=== PATIENT | male | born 1995 | race Caucasian/White ===

== ENCOUNTER 2024-12-11 15:47 | Emergency (ER) | payer OTHER, SELFPAY ==
[2024-12-11] VITALS (19 sets, daily range): BP systolic 120–143; BP diastolic 83–108; PULSE 57–102; RESP 14–25; TEMP 36.4; O2SAT 94–99
--- NOTE | ~2024-12-11 | CT_ITS ---
EXAMINATION: CT brain wo con DATE: 12/11/2024 17:32 INDICATION: headache . TECHNIQUE: Computed tomography (CT) of the head was performed without intravenous contrast. The mA wa s adjusted according to patient size. Iterative reconstruction technique was employed. The dose-lengt h product was 605.33 mGy-cm. COMPARISON: None. FINDINGS: No acute intracranial hemorrhage or extra-axial fluid collection. No hydrocephalus, mass, or herniation. No acute ischemic infarct. Unremarkable dural venous sinus attenuation. No acute osseous abnormality. The aerated spaces are clear. IMPRESSION: No acute intracranial process. Reviewed, dictated and finalized at location K.
--- NOTE | ~2024-12-11 | XR_ITS ---
EXAMINATION: XR chest 2V Exam Date/Time: 12/11/2024 16:20 CDT HISTORY: chest pain Comparison: None. RESULT: Lines, tubes, and devices: None. Lungs and pleura: Clear. Cardiomediastinal silhouette: Normal. Other: No acute osseous or upper abdominal finding. IMPRESSION: No acute cardiopulmonary process. Reviewed, dictated and finalized at location K.
--- NOTE | 2024-12-11 15:56 | ECG_ITS ---
Test Date: 2024-12-11 19:06:02 Measurements Intervals [place] Rate: 57 P: 13 ND: 158 QRS: 3 QRSD: 95 T: -1 QT: 388 QTc: 379 Interpretive Statements SINUS BRADYCARDIA VOLTAGE CRITERIA FOR LVH MINIMAL Q WAVES- HIGH LATERAL LEADS BORDERLINE T WAVE ABNORMALITY- INFERIOR LEADS BASELINE ARTIFACT- I, III, AVR, AVL, AVF, V2 BORDERLINE ECG Compared to ECG 12/11/2024 15:58:58 No significant changes Electronically Signed On 12-11-2024 19:38:27 CDT by Pito Javier D.O.
--- NOTE | 2024-12-11 15:56 | ECG_ITS ---
Test Date: 2024-12-11 15:58:58 Measurements Intervals [place] Rate: 58 P: 18 MS: 149 QRS: 6 QRSD: 99 T: 2 QT: 404 QTc: 397 Interpretive Statements SINUS BRADYCARDIA VOLTAGE CRITERIA FOR LVH MINIMAL Q WAVES- HIGH LATERAL LEADS BORDERLINE T WAVE ABNORMALITY- INFERIOR LEADS BORDERLINE ECG No previous ECG available for comparison Electronically Signed On 12-11-2024 19:38:52 CDT by Pito Javier D.O.
--- NOTE | 2024-12-11 16:00 | ED_ITS ---
HPI - General Adult General Chief complaint: Unspecified Stated complaint: multiple complaints Time Seen by Provider: 12/11/24 15:56 Source: patient Mode of arrival: ambulatory Limitations: no limitations History of Present Illness HPI narrative: This is a 29 year old male that presents to the ER with multiple complaints. Reports on Thursday he sneezed. He had a headache and chest pain after. He has been having headaches since. Reports he doesn't feel right . Reports an achy left sided chest pain that has been intermittent as well. Reports he has not been able to sleep well, increasing anxiety. Related Data Allergies Allergy/AdvReac Type Severity Reaction Status Date / Time ciprofloxacin (From Cipro) Allergy Dizziness Verified 12/11/24 15:50 Review of Systems 2 Review of Systems: CONSTITUTIONAL: Denies fever CARDIOVASCULAR: Reports chest pain RESPIRATORY: Denies dyspnea. GASTROINTESTINAL: Denies vomiting NEUROLOGIC: Reports headache. Denies numbness, or weakness. All systems reviewed & are unremarkable except as noted in HPI and below PMFSH Past Medical History Medical History (Updated 12/11/24 @ 20:24 by Dulce Louis PA-C) History of anxiety Social History Social History (Updated 12/11/24 @ 17:04 by Dulce Louis PA-C) Smoking status: Never smoker Exam 2 Narrative: GENERAL: Well-appearing, well-nourished, and in no acute distress. HEAD: Normocephalic, atraumatic. EYES: PERRLA and EOMI. ENT: Nares clear, no rhinorrhea or epistaxis. Mucous membranes moist. Oropharynx without tonsillar hypertrophy exudate or other lesions. Bilateral TMs pearly granado non-bulging NECK: Supple. No adenopathy or masses. CHEST: Clear to auscultation. No respiratory distress. No wheezes rales or rhonchi HEART: Regular rate and rhythm. No murmur heard. Normal peripheral pulses. EXTREMITIES: Normal range of motion. No edema. Strength equal in bilateral upper and lower extremities SKIN: Warm, dry, no rash. NEURO: No focal deficits. Alert and oriented x3. CN II-XII grossly intact. Normal gait PSYCH: Normal mood and affect Course Course Emergency Course: Patient updated on his workup and agrees with plan of care Vital Signs Vital signs: Vital Signs Pulse Rate 60 12/11/24 15:57 Respiratory Rate 18 12/11/24 15:57 Blood Pressure 138/83 12/11/24 15:57 Pulse Oximetry 99 12/11/24 15:57 Temperature 97.6 F 12/11/24 15:58 Pulse Rate 102 H 12/11/24 20:16 Respiratory Rate 19 12/11/24 20:16 Blood Pressure 141/108 H 12/11/24 20:16 Pulse Oximetry 96 12/11/24 20:16 Medical Decision Making MDM Narrative Medical decision making narrative: Patient presents to the emergency department with multiple complaints. Reporting headaches, chest pains. Patient's vitals are stable. He is neurologically intact. CBC and metabolic panel without concerning findings. D- dimer is not elevated. EKG without acute ST changes in his baseline and 3 hour troponin are negative. Chest x-ray without acute cardiopulmonary abnormality. CT brain without acute findings. Patient updated on his workup and agrees with plan of care. Instructed to follow up with his primary provider for further evaluation. He was given warnings to return to the ER Vital Signs Vital Signs: Vital Signs Pulse Rate 60 12/11/24 15:57 Respiratory Rate 18 12/11/24 15:57 Blood Pressure 138/83 12/11/24 15:57 Pulse Oximetry 99 12/11/24 15:57 Temperature 97.6 F 12/11/24 15:58 Pulse Rate 102 H 12/11/24 20:16 Respiratory Rate 19 12/11/24 20:16 Blood Pressure 141/108 H 12/11/24 20:16 Pulse Oximetry 96 12/11/24 20:16 Lab Data Lab results reviewed: Yes I reviewed the patient's lab results. 12/11/24 16:01 12/11/24 16:01 Labs: Lab Results 12/11/24 12/11/24 Range/Units 16:01 19:04 WBC 7.3 (4.5-10.0) K/mm3 RBC 5.25 (4.6-6.20) M/mm3 Hgb 16.7 (14.0-18.0) g/dL Hct 48.3 (42.0-52.0) % MCV 92.0 (80-100) fl MCH 31.8 (26-34) pg MCHC 34.6 (32-36) g/dl RDW 12.7 (11.5-14.5) % Plt Count 267 (150-375) k/mm3 MPV 10.2 (7.4-10.4) fl Immature Gran % (Auto) 0.1 (0-0.5) % Neut % (Auto) 64.4 (45.5-73.1) % Lymph % (Auto) 23.4 (18.3-44.2) % Cedar % (Auto) 7.8 (2.6-8.5) % Eos % (Auto) 3.7 (0-4.4) % Baso % (Auto) 0.6 (0.2-1.2) % Lymph # (Auto) 1.70 (0.9-3.2) K/mm3 Cedar # (Auto) 0.6 (0.1-0.6) K/mm3 Eos # (Auto) 0.3 (0-0.3) K/mm3 Baso # (Auto) 0.0 (0.0-0.1) K/mm3 Abs Immat Gran (auto) 0.01 (0.00-0.031) K/mm3 Absolute Neuts (auto) 4.7 (1.3-6.7) K/mm3 Absolute Nucleated RBC 0.000 (0.0-0.012) K/mm3 Nucleated RBC % 0.0 (0.0-0.2) % PT 13.2 (11.1-14.7) Seconds INR 1.0 APTT 27.7 (22.3-36.8) Seconds D-Dimer 0.30 (<0.48) ug/mL Sodium 139 (137-145) mmol/L Potassium 4.2 (3.4-5.0) mmol/L Chloride 104 (98-107) mmol/L Carbon Dioxide 23 (22-30) mmol/L Anion Gap 12 (4-12) mmol/L BUN 13 (9-20) mg/dL Creatinine 0.76 (0.7-1.3) mg/dL Estim Creat Clear Calc 168 ml/min Estimated GFR > 60 (59 - ) Glucose 90 (65-110) mg/dL Calcium 9.4 (8.4-10.2) mg/dL Total Bilirubin 0.8 (0.2-1.3) mg/dL AST 34 (17-59) U/L ALT 49 (6-50) U/L Alkaline Phosphatase 89 (38-126) U/L Troponin I < 0.012 < 0.012 (0.000-0.034) ng/mL Total Protein 8.0 (6.3-8.2) g/dL Albumin 4.4 (3.5-5.1) g/dL Lipase 65 (23-300) U/L TSH (Reflex) 1.870 (0.465-4.68) uIU/mL Imaging Data Radiologist's impression: ITS Impressions Chest X-Ray 12/11/24 16:38 IMPRESSION: No acute cardiopulmonary process. Head CT 12/11/24 17:33 IMPRESSION: No acute intracranial process. ECG Data EKG #1: ECG completion date: 12/11/24 EKG Interpretation: normal rate, sinus rhythm, no ST changes and normal QT Critical Care Time Critical Care Time Critical Care Time: No Discharge Plan Discharge Clinical Impression: Chest pain Qualifiers: Chest pain type: unspecified Qualified Code(s): R07.9 - Chest pain, unspecified Headache Qualifiers: Headache type: unspecified Headache chronicity pattern: acute headache I ntractability: not intractable Qualified Code(s): R51.9 - Headache, unspecified Patient Disposition: Home Condition: Stable Instructions: Acute Headache (ED), Chest Wall Pain (ED) Additional Instructions: Return to the emergency department if you experience fever, vision changes, worsening chest pain, shortness of breath, abdominal pain with nausea and vomiting, weakness, numbness, or any other symptoms that are concerning to you. Follow up with your primary care doctor Patient Language: Malawian Follow-up/Referrals: UNKNOWN,DOCTOR [Primary Care Provider] - Quality HEART score for chest pain patients History: slightly suspicious ECG: normal Age: < or = to 45 years Risk factors: 1 or 2 risk factors Troponin: < or = to 1x normal limit Heart score: 1
[2024-12-11 16:06] LABS: Basophils Percent Auto 0.6 % (0.2-1.2); Eosinophils Absolute Auto 0.3 K/mm3 (0-0.3); Eosinophils Percent Auto 3.7 % (0-4.4); Hematocrit 48.3 % (42.0-52.0); Hemoglobin 16.7 g/dL (14.0-18.0); Immature Granulocyte Absolute 0.01 K/mm3 (0.00-0.031); Immature Granulocyte Percent A 0.1 % (0-0.5); Lymphocytes Percent Auto 23.4 % (18.3-44.2); Mean Corpuscular HGB Conc 34.6 g/dl (32-36); Mean Corpuscular Hemoglobin 31.8 pg (26-34); Mean Platelet Volume 10.2 fl (7.4-10.4); Monocytes Absolute Auto 0.6 K/mm3 (0.1-0.6); Monocytes Percent Auto 7.8 % (2.6-8.5); Neutrophils Absolute Auto 4.7 K/mm3 (1.3-6.7); Neutrophils Percent Auto 64.4 % (45.5-73.1); Platelet Count Result 267 k/mm3 (150-375); Red Blood Count 5.25 M/mm3 (4.6-6.20); Red Cell Distribution Width 12.7 % (11.5-14.5); White Blood Count 7.3 K/mm3 (4.5-10.0)
[2024-12-11] MEDS: ASPIRIN 81 MG CHEWABLE TABLET 324 MG PO (16:07)
--- OUTSIDE RECORDS SUMMARY | 2024-12-11 16:15 | XMS_ITS | Clinical Summary ---
Author Organization [facility] Address [address] [place] [address] Care Team Providers Care Controller [place] Name Role Phone Pascale Cote MD Primary Care P rovider Allergies Active Allergy Reactions Criticality Noted Date Comments Ciprofloxacin High Other reaction(s): Dizziness - Medications pseudoephedrine HCl (SUDAFED ORAL) Take 1 tablet by mouth daily Active acetaminophen (Tylenol Extra Strength) 500 mg tabletIndication s:Viral meningitis Take 1 tablet (500 mg total) by mouth every 6 (six) hours 30 tablet 2 Active escitalopram (LEXAPRO) 20 mg tablet Take 1 tablet (20 mg total) by mouth daily 3 Active ibuprofen (MOTRIN) 400 mg tablet Take 1 tablet (400 mg total) by mouth every 6 (six) hours as needed for mild pain or moderate pain Active meloxicam (MOBIC) 15 mg tablet Take 1 tablet (15 mg total) by mouth daily as needed for moderate pain Holding 1 week Active HYDROcodone-acet aminophen (NORCO) 5-325 mg per tabletIndication s:Deviated septum,Hypertrop hy of nasal turbinates,Hyper trophy of inferior nasal turbinate,Chroni c maxillary sinusitis Take 1 tablet by mouth every 6 (six) hours as needed for moderate pain 30 tablet 4 Active Additional Information Patient not taking.Reported on 04/14/2024 naloxone (NARCAN) 4 mg/actuation spray,non-aeroso l nasal sprayIndications :Deviated septum,Hypertrop hy of nasal turbinates,Hyper trophy of inferior nasal turbinate,Chroni c maxillary sinusitis Administer 1 spray into one nostril as needed (for overdose) May repeat every 2 to 3 minutes in alternating nostrils until medical assistance becomes available. 2 each 4 Active clotrimazole (LOTRIMIN) 1 % external solutionIndicati ons:Oral thrush Apply topically 2 (two) times a day 30 mL 4 Active Additional Information Patient not taking.Reported on 07/29/2024 oxyCODONE-acetam inophen (PERCOCET) 5-325 mg per tabletIndication s:Post-operative pain Take 1 tablet by mouth every 4 (four) hours as needed for moderate pain 7 tablet 4 Active Additional Information Patient not taking.Reported on 07/29/2024 codeine-guaiFENe sin (ROBITUSSIN-AC) 10-100 mg/5 mL liquidIndication s:Cough, unspecified type Take 10 mL by mouth every 4 (four) hours as needed for cough 1st line 120 mL 4 Active Additional Information Patient not taking.Reported on 07/29/2024 hydrOXYzine (ATARAX) 25 mg tabletIndication s:Rash Take 1 tablet (25 mg total) by mouth 3 (three) times a day as needed for itching 30 tablet 4 Active clotrimazole-bet amethasone (LOTRISONE) creamIndications :Rash Apply topically 2 (two) times a day 30 g 4 Active Active Problems Problem Noted Date Diagnosed Date Acute intractable headache, unspecified headache type 04/26/2022 Chronic maxillary sinusitis 02/23/2019 Deviated septum 02/23/2019 Hypertrophy of inferior nasal turbinate 02/24/20 19 Assessment & Plan (06/10/2023 4:05 PM CDT): Try halina Will check RAST Follow up surgeon for ITR possible septo Discussed surgery, cannot guarantee cure of headaches, may have chronic migraine vs medication overuse headache, may need to see neurologist. Assessment & Plan (02/23/2019 2:57 PM CDT): rec nasal saline irrigation with NeilMed rinse kit followed by nasal steroid daily Try nasacort, aim out Add singulair F/u in [address] sinuses to r/o chronic sinusitis due to chronic headaches, deviated septum, turbinate hypertrophy If sinuses clear, will ref to allergy Immunizations Name Administration Dates Next Due Influenza (IM) Quad PF 04/10/2018 Social History Tobacco Use Types Packs/Day Years Used Date Smoking Tobacco: Never Smokeless Tobacco: Never Tobacco Cessation:Counseling Given: Not Answered Alcohol Use Standard Drinks/Week Comments No 0 (1 standard drink = 0.6 oz pur e alcohol) AUDIT-C Answer Date Recorded Q1: How often do you have a drink containing alcohol? Never 09/30/2023 Q2: How many drinks containi ng alcohol do you have on a typical day when you are drinking? Patient does not drink Q3: How often do you have si x or more drinks on one occasion? Never 09/30/2023 Hunger Vital Sign Answer Date Recorded Within the past 12 months, y ou worried that your food would run out before you got the money to buy more. Never true 09/30/19 24 Within the past 12 months, t he food you bought just didn't last and you didn't have money to get more. Never true 09/30/2023 PRAPARE - Transportation Answer Date Re corded In the past 12 months, has l ack of transportation kept you from medical appointments or from getting medications? 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 Pulse 92 07/29/2024 5:42 PM SHELLFISH CHECKER Temperature 35.9 C (96.6 F) 07/29/2024 5:42 PM SHELLFISH CHECKER Respiratory Rate 17 06/16/2024 4:45 PM CDT Oxygen Saturation 99% 07/29/2024 5:42 PM SHELLFISH CHECKER Inhaled Oxygen Concentration - - Weight 130 kg (286 lb 1.6 oz) 07/29/2024 5:42 PM SHELLFISH CHECKER Height 180.3 cm (5' 11 ) 11/04/2023 8:43 AM CDT Body Mass Index 39.9 11/04/2023 8:43 AM CDT Plan of Treatment Health Maintenance Due Date Last Done Comments MMR Vaccines (1 of 1 - Stand ran series) 1994 DTaP,Tdap,and Td Vaccines (1 - Tdap) 2000 Varicella Vaccines (1 of 2 - 13+ 2-dose series) 2006 Hepatitis B Vaccines (1 of 3 - 19+ 3-dose series) 2012 COVID-19 Vaccine (1 - 2023-2 5 season) 2024 Influenza Vaccine (Season Ended) 2025 04/10/20 18 RSV Vaccines and 60 Years or Older (1 - 1-dose 75+ series) 2068 AMB Pneumococcal 0-64 yrs Aged Out No longer eligible based on patient's age to complete this topic HIB Vaccines Aged Out No longer eligi ble based on patient's age to complete this topic HPV Vaccines Aged Out No longer eligi ble based on patient's age to complete this topic Hepatitis A Vaccines Aged Out No long er eligible based on patient's age to complete this topic IPV Vaccines Aged Out No longer eligi ble based on patient's age to complete this topic Meningococcal ACWY Vaccine Aged Out N o longer eligible based on patient's age to complete this topic Meningococcal B Vaccine Aged Out No l onger eligible based on patient's age to complete this topic RSV Vaccines <20 Months Aged Out No l onger eligible based on patient's age to complete this topic Insurance [facility] [employer] Member Subscriber Plan / Payer (Ef fective 2021-Present) Name:Matt Lubin Member ID:[id number] Relation to Subscriber:Self Name:Matt Lubin Subscriber ID:[id number] Payer ID:Not on file Type:Claim Assist Address: [address] [facility] Advance Directives For more information, please contact: [phone] * Full Code (Latest Code Status on File) Date Activated Date Inactivated Comments 10/15/2023 7:56 AM 10/15/2023 3:25 PM * Full Code Date Activated Date Inactivated Comments 04/26/2022 9:17 AM 04/27/2022 4:06 PM Care Teams Controller [place] Relationship Specialty Start Date End Date Pascale Cote MD [address] [place] [address] PCP - General Family Medicine 01/13/24
--- OUTSIDE RECORDS SUMMARY | 2024-12-11 16:15 | XMS_ITS | Clinical Summary ---
Author Organization [facility] Address [address] [place] [id number] Care Team Providers Care Executive Wellness Programs Director Name Role Phone JasonJerald Nadya KLEIN Primary Care Provider [phone] Allergies Active Allergy Reactions Criticality Noted Date Comments Ciprofloxacin Unknown 07/15/2023 Medications escitalopram (LEXAPRO) 20 MG tablet Take 20 mg by mouth daily. Active meloxicam (MOBIC) 15 MG tablet 06/24/2023 Active Multiple Vitamins-Mineral s (DAILY VITAMIN FORMULA+MINERALS ) Tab 12/13/2019 Active pseudoephedrine ER (SUDAFED) 120 MG 12 hr tablet Take 120 mg by mouth every 12 (twelve) hours. Active Active Problems Problem Noted Date Diagnosed Date Other chest pain 07/15/2023 Chronic maxillary sinusitis 02/23/2019 Hypertrophy of inferior nasal turbinate 02/24/20 19 Overview (07/15/2023): Last Assessment & Plan: Maria A meade Will check RAST Follow up surgeon for ITR possible septo Discussed surgery, cannot guarantee cure of headaches, may have chronic migraine vs medication overuse headache, may need to see neurologist. Acute intractable headache, unspecified headache type 1993 Social History Tobacco Use Types Packs/Day Years Used Date Smoking Tobacco: Never Smokeless Tobacco: Never Tobacco Cessation:Counseling Given: Not Answered Alcohol Use Standard Drinks/Week Comments Never 0 (1 standard drink = 0.6 oz pur e alcohol) Sex and Gender Information Value Date Recorded Sex Assigned at Not on file Legal Sex Male 7:58 PM CDT Gender Identity Not on file Sexual Orientation Not on file Last Filed Vital Signs Vital Sign Reading Time Taken Comments Blood Pressure 126/84 07/15/2023 9:52 AM CARE TRAINER Pulse 75 07/15/2023 9:52 AM CARE TRAINER Temperature - - Respiratory Rate 16 07/15/2023 9:52 AM CARE TRAINER Oxygen Saturation 98% 07/15/2023 9:52 AM CARE TRAINER Inhaled Oxygen Concentration - - Weight 121.7 kg (268 lb 6.4 oz) 07/15/2023 9:52 AM CARE TRAINER Height 180.3 cm (5' 11 ) 07/15/2023 9:52 AM CARE TRAINER Body Mass Index 37.43 07/15/2023 9:52 AM CARE TRAINER Plan of Treatment Health Maintenance Due Date Last Done Comments Annual Physical 1996 Hepatitis C 2011 DTaP, Tdap and Td Vaccines ( 1 - Tdap) 2012 Hepatitis B Vaccines (1 of 3 - 19+ 3-dose series) 2012 COVID-19 Vaccine (2023-2 5 season) 2024 HPV Vaccines Aged Out No longer eligi ble based on patient's age to complete this topic Meningococcal B Vaccine Aged Out No l onger eligible based on patient's age to complete this topic Meningococcal Vaccine Aged Out No dawn ronnie eligible based on patient's age to complete this topic Pneumococcal Vaccine: Pediat rics (0 to 5 Years) and At-Risk Patients (6 to 49 Years) Aged Out No longer eligible b ased on patient's age to complete this topic RSV Immunizations Under 20 Months Aged Out No longer eligible based on patient's age to complete this topic Insurance [facility] Care Teams Executive Wellness Programs Director Relationship Specialty Start Date End Date Jerald Gomez DO [address] [facility] [address] [place] [address] PCP - General FAMILY PRACTICE 07/15/23
--- OUTSIDE RECORDS SUMMARY | 2024-12-11 16:15 | XMS_ITS | Encounter Summary ---
Author Organization [facility] Address [address] [place] [address] Care Team Providers Care Access Rep Name Role Phone Pascale Cote MD Primary Care P [place] Reason for Visit * Reason Comments Med Refill Encounter Details Date Type Department Care Team (Late st Contact Info) Description 02/24/2020 Refill [facility] Otolaryngology [address] [place] [address] Tali Ken PA [address] [place] [address] Social History Tobacco Use Types Packs/Day Years Used Date Smoking Tobacco: Never Smokeless Tobacco: Never Alcohol Use Standard Drinks/Week Comments No 0 (1 standard drink = 0.6 oz pur e alcohol) Sex and Gender Information Value Date Recorded Sex Assigned at Not on file Legal Sex Male 11:13 PM CDT Gender Identity Male 02/15/2023 6:38 PM CDT Sexual Orientation Not on file documented as of this encounter Miscellaneous Notes * Telephone Encounter - Edilia Escalera LPN - 02/27/2020 7:56 AM CDT Please review documented in this encounter Plan of Treatment Not on file documented as of this encounter Visit Diagnoses Not on filedocumented in this encounter Additional Health Concerns Infection Onset Date Last Indicated Resolved Time R/O COVID-19 03/05/2020 03/05/2020 03/07/2020 7:09 PM CDT R/O COVID-19 05/09/2020 05/09/2020 05/09/2020 11:0 2 PM CDT R/O COVID-19 11/22/2020 11/22/2020 11/22/2020 4:18 PM CDT R/O COVID-19 07/30/2021 07/30/2021 07/30/2021 8:35 PM 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-19 07/30/2021 07/30/2021 10/28/2021 12:2 1 AM DRAWING IN MACHINE TENDER HELPER R/O COVID-19 04/25/2022 04/25/2022 04/25/2022 5:23 PM CDT R/O COVID-19 04/26/2022 04/26/2022 04/26/2022 4:33 AM CDT R/O TB: EP (draining) 04/26/2022 04/26/20222021 11:33 AM CDT R/O Meningitis 04/26/2022 04/26/2022 04/26/2022 10 :42 AM CDT R/O COVID-19 02/10/2023 02/10/2023 02/10/2023 10:2 4 PM CDT R/O COVID-19 01/13/2024 01/13/2024 01/13/2024 4:39 PM CDT Rhinovirus infection 01/13/2024 01/13/2024 024 12:21 AM CDT R/O Meningitis >=9yo 01/13/2024 01/13/2024 024 6:55 PM CDT R/O COVID-19 04/14/2024 04/14/2024 04/14/2024 3:25 PM CDT documented as of this encounter Care Teams Access Rep Relationship Specialty Start Date End Date Pascale Cote MD [address] [place] [address] PCP - General Family Medicine 01/13/24 documented as of this encounter
--- OUTSIDE RECORDS SUMMARY | 2024-12-11 16:15 | XMS_ITS | Encounter Summary ---
Author Organization [facility] Address [address] [place] [address] Care Team Providers Care Food Supervisor Name Role Phone Pascale Cote MD Primary Care P [place] Reason for Visit * Reason Comments Med Refill Encounter Details Date Type Department Care Team (Late st Contact Info) Description 04/29/2020 Refill [facility] Otolaryngology [address] [place] [id number] Tali Ken PA [address] [place], [place] [id number] Social History Tobacco Use Types Packs/Day Years [...] encounter Miscellaneous Notes * Telephone Encounter - DARON Amor - 05/01/2020 8:44 AM CDT Needs appointment for refills of singulair * Telephone Encounter - Edilia Escalera LPN - 05/01/2020 7:59 AM CDT Please review documented in this encounter Plan of Treatment Not on file documented as of this encounter Visit Diagnoses Not on filedocumented in this encounter Additional Health Concerns Infection Onset Date Last Indicated Resolved Time R/O COVID-19 05/09/2020 05/09/2020 05/09/2020 11:0 2 PM CDT R/O COVID-19 11/22/2020 11/22/2020 11/22/2020 4:18 PM CDT R/O COVID-19 07/30/2021 07/30/2021 07/30/2021 8:35 PM RESEARCH CLERK COVID-19 07/30/2021 07/30/2021 10/28/2021 12:2 1 AM RESEARCH CLERK R/O COVID-19 04/25/2022 04/25/2022 04/25/2022 5:23 PM [...] documented as of this encounter Care Teams Food Supervisor Relationship Specialty Start Date End Date Pascale Cote MD [address] [place] [id number] PCP - General Family Medicine 01/13/24 documented as of this encounter
--- OUTSIDE RECORDS SUMMARY | 2024-12-11 16:15 | XMS_ITS | Encounter Summary ---
Author Organization [facility] Address [address] [place] [address] Care Team Providers Care Cartographic Aide Name Role Phone Pascale Cote MD Primary Care P beverly[place] Encounter Details Date Type Department Care Team (Late st Contact Info) Description 10/21/2023 Orders Only [facility] Medical Group Otolaryngology [address] [place] [address] Taj Jaramillo MD [address] [place] [address] Oral thrush (Primary Dx) Social History Tobacco Use Types Packs/Day Years [...] on file documented as of this encounter Plan of Treatment Not on file documented as of this encounter Visit Diagnoses Diagnosis Oral thrush- Primary Candidiasis of mouth documented in this encounter Additional Health Concerns Infection Onset Date Last Indicated Resolved Time R/O COVID-19 01/13/2024 01/13/2024 01/13/2024 4:39 PM CDT Rhinovirus infection 01/13/2024 01/13/2024 12:21 AM CDT R/O Meningitis >=9yo 01/13/2024 01/13/2024 024 6:55 PM CDT R/O COVID-19 04/14/2024 04/14/2024 04/14/2024 3:25 PM CDT documented as of this encounter Care Teams Cartographic Aide Relationship Specialty Start Date End Date Pascale Cote MD [address] [place] [id number] PCP - General Family Medicine 01/13/24 documented as of this encounter
--- OUTSIDE RECORDS SUMMARY | 2024-12-11 16:15 | XMS_ITS | Data Portability ---
Author Organization [facility], [facility] Address [address] [place] [address] Assessment No assessment recorded. Plan of Treatment Reminders Order Date Submit Date Provider Last Modified By Organization Details Last Modified Time Details Appointments None recorded. Lab rapid strep group A, throat 2019 020 NATALIE In-House Results, For Internal Use Only, Do Not Delete/merge, [id number] 0 15:56:55 Referral None recorded. Procedures None recorded. Surgeries None recorded. Imaging None recorded. Medication Orders amoxicilli n 500 mg capsule 2019 020 INTERFACE [facility] [id number], [address] [place], [address], 0 15:56:07 Patient TargetsNo targets recorded. Patient Instructions Encounter Date Encounter Id Patient Instructions Last Modified By Organization Details Last Modified Time 11/29/2019 [id number] Patient instructed to follow up with PCP or Express care for nonimproving symptoms or worsening symptoms. [email or web address] Not available 11/29/2019 16:05:08 Reason for Referral None Reported. Results Created Date Observation Date Name Description Value Unit Range Abnormal Flag Note LastModifiedBy Organization Detail LastModifiedTime 11/29/19 20 11/29/2019 rapid strep group A, throa t Strep negati ve Not Available In-House Results For Internal Use Only, Do Not Delete/merge, [id number] 11/29/2019 15:49:31 Result Notes None recorded. Problems Name Problem SNOMED Code Status Onset Date Resolution Date Notes Provider Name and Address Organization Details Recorded Time Allergic disposition [id number] Active 2019 Ainsley Yun RN null, [facility] 0 15:42:21 Problem Notes None recorded. Procedures Surgical History Date Name Laterality Status Provider Name and Address Organization Details Recorded Time operation on meniscus of the knee completed CRYSTAL JOSEPH NP [address] [place], [address], [facility] 11/29/2019 15:57:09 Imaging Results None recorded. Procedure Notes None recorded. Medical Equipment None Reported. Allergies No known drug allergies Medications Name Sig Start Date Stop Date Status Note LastModified by Organization Details LastModified Time amoxicillin 500 mg capsule Take 1 capsule every 8 hours by oral route for 7 days. 020 active Not Available Not Available Not Avai lable Zyrtec 10 mg tablet Take 1 tablet every day by oral route. active Not Available Not Available No t Available montelukast 10 mg tablet TAKE 1 TABLET BY MOUTH NIGHTLY active Not Available Not Available No t Available Vitals Date Recorded Body weight Body temperature Respiratory rate Heart rate Oxygen saturation Oxygen saturation in Arterial blood by Pulse oximetry Systolic blood pressure Diastolic blood pressure Provider Name and Address Organization Details Last Updated DateTime 0 497372. 21 g 98.3 [degF] 18 /min 78 /min 96 % 96 % 118 mm[Hg] 76 mm[Hg] Ainsley Yun RN [facility] 0 15:45:33 Social History Question Answer Notes LastModified by Organizat ion Details LastModified Time Tobacco Smoking Status Never Smoker Ainsley Yun RN [facility], [facility] 11/29/2019 15:42:59 In The 14 Days Before Symptom Onset, Have You Had Close Contact With A Laboratory-confir med COVID-19 While That Case Was Ill? No Information not available 11/29/2019 In The 14 Days Before Symptom Onset, Have You Had Close Contact With A Person Who Is Under Investigation For COVID-19 While That Person Was Ill? No Information not available 11/29/2019 In The 14 Days Before Symptom Onset, Did The Patient Spend Time In [facility]? No Information not available 11/29/2019 Have You Been To An Area Known To Be High Risk For COVID-19? No Information not available 11/29/2019 Do You Or Have You Ever Used E-cigarettes Or Vape? Never Used Electronic Cigarettes Information not available 11/29/2019 Sex: Unknown Functional Status None recorded. Mental Status None recorded. Family History Nothing Reported. Medical History Condition Response HAVE YOU BEEN HOSPITALIZED OR SEEN IN [facility] IN THE PAST YEAR ? N ALLERGIES Y Past Encounters Encounter ID Performer Location Encounter Start Date Encounter Closed Date Diagnosis/Indication Diagnosis SNOMED-CT Code Diagnosis ICD10 Code Diagnosis Note [id number] CRYSTAL JOSEPH NP [facility] [address] [place] [id number] 11/29/2019 15:35:17 11/29/2019 15:59:42 Sore throat 886715118 J02.9 will check for strep Acute pharyngitis 527279 003 J02.9 Discussed with the patient results of rapid strep test. Patient is instructed to drink plenty of clear liquids. To help with the sore throat you can use salt water gargles, Chlorasept ic spray or throat Lozenges. You should change tooth brushes when you have completed your antibiotic . Tylenol and Motrin should be alternated for fevers. Discussed medication s and side effects of medication s with the patient. Patient verbalizes understand ing of this. Health Concerns Section Related Observation LastModified by Organization Detai ls LastModified Time None Recorded Concern Status LastModified by Organization Details LastModified Time None Recorded Advance Directives Directive None Recorded Payers Encounter Date Sequence Insurance Name Policy Number Policy Aprsons Covered Member ID Parsons Member ID Guarantor Name 11/29/2019 HASMUKH Lubin [id number] Matt Lubin Notes Date Note Type Note Provider Name a nd Address Organization Details Recorded Time 11/29/2019 text/html 24 year old patient of [facility] family medicine presents to [facility] with complaints of sore throat and hurts to swallow times 2 days. recently had strep throat Patient denies any fever, congestion, nausea, vomiting or diarrhea . patient hasnt tried anything OTC. All other systems per ROS are normal CRYSTAL JOSEPH NP [address] , [place], [address], [facility] 11/29/2019 16:05:37
--- OUTSIDE RECORDS SUMMARY | 2024-12-11 16:15 | XMS_ITS | Encounter Summary ---
Author Organization [facility] Address [address] [place] [address] Care Team Providers Care Pulmonology Physician Name Role Phone Pascale Cote MD [facility] [place] Reason for Visit * Reason Comments Med Refill Encounter Details Date Type Department Care Team (Late st Contact Info) Description 11/17/2020 Refill [facility] Otolaryngology [address] [place] [phone] Tali Ken PA [address] [place] [address] Social History Tobacco Use Types [...] encounter Miscellaneous Notes * Telephone Encounter - Di Hidalgo MA - 11/20/2020 1:48 PM CDT Called and left VM advising he would need an appt for refills. Thanks! * Telephone Encounter - DARON Amor - 11/20/2020 1:17 PM CDT Needs appointment for refills * Telephone Encounter - Di Hidalgo MA - 11/19/2020 11:09 AM CDT Please review. Thanks! 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
--- OUTSIDE RECORDS SUMMARY | 2024-12-11 16:15 | XMS_ITS | Encounter Summary ---
Author Organization [facility] Address [address] [place] [address] Care Team Providers Care Brick Maker Name Role Phone Pascale Cote MD [facility] [place] Encounter Details Date Type Department Care Team (Late st Contact Info) Description 05/10/2020 Documentation [facility] Neurology [address] [place] [address] Yancy Starkey PA [address] [place] [address] Social History Tobacco Use Types Packs/Day Years Used Date Smoking Tobacco: Never Smokeless Tobacco: Never Alcohol Use Standard Drinks/Week Comments No 0 (1 standard drink = 0.6 oz pur e alcohol) Sex and Gender Information Value Date Recorded Sex Assigned at Not on file Legal Sex Male 11:13 PM CDT Gender Identity Male 02/15/2023 6:38 PM CDT Sexual Orientation Not on file COVID-19 Exposure Response Date Recorded In the last month, have you been in contact with someone who was confirmed or suspected to have Coronavirus / COVID-19? 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
--- OUTSIDE RECORDS SUMMARY | 2024-12-11 16:15 | XMS_ITS | Encounter Summary ---
Author Organization [facility] Address [address] [place] [address] Care Team Providers Care Tower Equipment Repairer Name Role Phone Pascale Cote MD [facility] [place] Reason for Visit * Reason Comments Med Refill Encounter Details Date Type Department Care Team (Late st Contact Info) Description 04/25/2020 Refill [facility] Otolaryngology [address] [place] [phone] Tali Ken PA [address] [place], [place] [id number] Social History Tobacco Use Types Packs/Day Years [...] * Telephone Encounter - DARON Amor - 04/26/2020 9:35 AM CDT Needs appointment for refills on singulair * Telephone Encounter - Edilia Escalera LPN - 04/26/2020 6:43 AM CDT Please review documented in this encounter Plan of Treatment Not on file documented as of this encounter Visit Diagnoses Not on filedocumented in this encounter Additional Health Concerns Infection Onset Date Last Indicated Resolved Time R/O COVID-19 05/09/2020 05/09/2020 05/09/2020 11:0 2 PM CDT R/O COVID-19 11/22/2020 11/22/2020 11/22/2020 4:18 PM CDT R/O COVID-19 07/30/2021 07/30/2021 07/30/2021 8:35 PM TYPE CASTER COVID-19 07/30/2021 07/30/2021 10/28/2021 12:2 1 AM TYPE CASTER R/O COVID-19 04/25/2022 04/25/2022 04/25/2022 5:23 PM [...] documented as of this encounter Care Teams Tower Equipment Repairer Relationship Specialty Start Date End Date Pascale Cote MD [address] [place] [id number] PCP - General Family Medicine 01/13/24 documented as of this encounter
--- OUTSIDE RECORDS SUMMARY | 2024-12-11 16:15 | XMS_ITS | Clinical Summary ---
Author Organization [facility] Address [address] [place] [address] Care Team Providers Care Animal Attendants And Trainers Name Role Phone Harish Craft MD Primary Care Provider [phone] Source Comments [facility],non-owned Affiliates and Associated Physician Practices is amultiple site organization consisting of ambulatory clinics and hospital sitesin [place], [place], [place] and [place]. This disclosure is being madepursuant to the Care Everywhere program and may not contain all information available regarding this patient. Last updated 18.[facility] Allergies Active Allergy Reactions Criticality Noted Date Comments Ciprofloxacin Dizziness High 05/12/2015 Medications * Be aware that medications may not be up to date on this document. Alwaysverify current medications with the patient. 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 Gender Identity Not on file Sexual Orientation Not on file Last Filed Vital Signs Vital Sign Reading Time Taken Comments Blood Pressure 125/81 12/23/2015 8:05 PM CDT Pulse 70 12/23/2015 8:05 PM CDT Temperature 36.6 C (97.9 F) 12/23/2015 8:05 PM CDT Respiratory Rate 18 12/23/2015 8:05 PM CDT Oxygen Saturation 98% 12/23/2015 8:05 PM CDT Inhaled Oxygen Concentration - - Weight 102.1 kg (225 lb) 12/21/2015 6:33 PM CDT Height 180.3 cm (5' 11 ) 12/21/2015 6:33 PM CDT Body Mass Index 31.38 12/21/2015 6:33 PM CDT Plan of Treatment Health Maintenance Due Date Last Done Comments HIV SCREENING 2008 HEPATITIS C SCREENING 03/22/2011 DTAP/TDAP/TD VACCINES (1 - Tdap) 2012 HEPATITIS B VACCINE (1 of 3 - 19+ 3-dose series) 2012 COVID-19 VACCINE (1 - 2023-2 5 season) 2024 DEPRESSION SCREENING 08/24/2024 INFLUENZA VACCINE (Season Ended) 2025 ZOSTER VACCINE (1 of 2) 2043 HIB VACCINE Aged Out No longer eligi ble based on patient's age to complete this topic HPV VACCINE Aged Out No longer eligi ble based on patient's age to complete this topic MENINGOCOCCAL (Group B) VACC INE SHARED DECISION-MAKING Aged Out No longer eligibl e based on patient's age to complete this topic MENINGOCOCCAL GROUPS A/C/Y/W VACCINE Aged Out No longer eligible b ased on patient's age to complete this topic PNEUMOCOCCAL VACCINE Aged Out No long er eligible based on patient's age to complete this topic Care Teams Animal Attendants And Trainers Relationship Specialty Start Date End Date Harish Craft MD [address] [facility] [address] [place] [address] PCP - General Internal Medicine 02/18/14
--- OUTSIDE RECORDS SUMMARY | 2024-12-11 16:15 | XMS_ITS | Continuity of Care Document ---
Author Organization [facility] Address [address] [place] [address] Phone Care Team Providers Care Manager Of Learning Name Role Phone Charlie Isidro PA-C Unavailable Unavailable Allergies, Adverse Reactions, Alerts Substance Reaction Status Criticality ciprofloxacin Active No Information Medications Medication Instructions Dosage Effective Dates (start - stop) Status Comments meloxicam 15 mg tablet take 1 tablet by oral route every day 15 MG - Active multivitamin tablet - Active escitalopram 5 mg tablet take 1 tablet by oral route every day 5 MG - Active Procedures Procedure Date Office/outpatient visit,est, mod 2023 Office/outpatient visit,est, mod 2023 Office/outpatient visit,est, mod 2023 Office/outpatient visit,est, mod 2023 Office/outpatient visit,est, mod 2023 Postop followup visit Postop followup visit Knee Xray 1 Or 2 Views Postop followup visit Knee Arthscpy ACL Reconstruction Or Repa ir Knee Arthscpy Meniscus Repair Medial OR Lateral Knee Orthosis, Adjustable Knee Joints, P ositiona Knee arthroscopy/repair ligament 2023 Office/outpatient visit,est, mod 2023 Office/outpatient visit,est, mod 2023 MRI Lower Ext Any Joint WO Contrast Office/outpatient visit,new, mod 2022 Advance Directives Directive Yes / No Effective Date File Name Other Directive No N/A N/A WARNING:The information contained in this section is historical and is provided for information only and does not constitute a legal document or any assurance that the information is still accurate. Please verify the information with the tovar of the legal document before using it for clinical purposes. Encounters Encounter Description Practice Location Reason(s) For Visit Diagnoses Date Provider Providers Copied on Encounter Office/outpa tient visit,[facility], [facility], [address] [place] [address], [id number], tel:[phone] [facility] right knee (chief complaint) Oth tear of medial meniscus, current injury, r knee, subsBody mass index (BMI) 37.0-37.9, adultElevated blood-pressure reading, w/o diagnosis of htn 4 Dwaine Guerra. [address] [place] [address], [id number] , . tel:[phone] Referring Provider: Charlie Nguyen, [address] [place] [address], [id number] . tel:[phone] Office/outpa tient visit,[facility], [address] [place] [address], [id number], tel:[phone] [facility] RIGHT KNEE (chief complaint) Body mass index (BMI) 37.0-37.9, adultElevated blood-pressure reading, w/o diagnosis of htnSprain of anterior cruciate ligament of right knee, subsOth tear of medial meniscus, current injury, r knee, subs 4 Dwaine Guerra. [address] [place] [address], [id number] , . tel:[phone] Referring Provider: Charlie Nguyen, [address] [place] [address], [id number] . tel:[phone] Office/outpa tient visit,[facility], [address] [place] [address], [id number], tel:[phone] [facility] right knee (chief complaint) Body mass index (BMI) 37.0-37.9, adultElevated blood-pressure reading, w/o diagnosis of htnOth tear of medial meniscus, current injury, r knee, subsSprain of anterior cruciate ligament of right knee, subs Apr- 4 Dwaine Guerra. [address] [place] [address], [id number] , . tel:[phone] Referring Provider: Charlie Nguyen, [address] [place] [address], [id number] . tel:[phone] Office/outpa tient visit,est, [facility], [address] [place] [address], [id number], [place] tel:[phone] [facility] RT KNEE (chief complaint) Oth tear of medial meniscus, current injury, r knee, subsSprain of anterior cruciate ligament of right knee, subsBody mass index (BMI) 37.0-37.9, adultElevated blood-pressure reading, w/o diagnosis of htn 4 Dwaine Guerra. [address] [place] [address], [id number] , [place]. tel:[phone] Referring Provider: Charlie Nguyen, [address] [place] [address], [id number] . tel:[phone] Office/outpa tient visit,est, [facility], [address] [place] [address], [id number], tel:[phone] [facility] RIGHT KNEE (chief complaint) Body mass index (BMI) 37.0-37.9, adultOth tear of medial meniscus, current injury, r knee, subs 4 Dwaine Guerra. [address] [place] [address], [id number] , [place]. tel:[phone] Referring Provider: Himanshu Breaux, [address] , [place], [address] . tel:[phone] [facility], [address] [place] [address], [id number], [place] tel:[phone] [facility] Right Knee (chief complaint) Oth tear of medial meniscus, current injury, r knee, subsSprain of anterior cruciate ligament of right knee, subsBody mass index (BMI) 37.0-37.9, adultElevated blood-pressure reading, w/o diagnosis of htn Forest- 4 Dwaine Guerra. [address] [place] [address], [id number] , . [phone] Referring Provider: Charlie Nguyen, [address] [place] [address], [id number] . tel:[phone] [facility], [address] [place] [address], [id number], tel:[phone] [facility] RIGHT KNEE (chief complaint) Body mass index (BMI) 37.0-37.9, adultElevated blood-pressure reading, w/o diagnosis of htnSprain of anterior cruciate ligament of right knee, subsOth tear of medial meniscus, current injury, r knee, subs December- 4 Dwaine Guerra. [address] [place] [address], [id number] , [place]. tel:[phone] Referring Provider: Charlie Nguyen, [address] [place] [address], [id number] . tel:[phone] [facility], [address] [place] [address], [id number], tel:[phone] [facility] knee (chief complaint) Pain in right kneeBody mass index (BMI) 37.0-37.9, adultOth tear of medial meniscus, current injury, r knee, subsSprain of anterior cruciate ligament of right knee, subs Nov- 4 Dwaine Guerra. [address] [place] [address], [id number] , [place]. tel:[phone] Referring Provider: Charlie Nguyen, [address] [place] [address], [id number] . tel:[phone] [facility], [address] [place] [address], [id number], tel:[phone] [facility] No Information 0 4 Walter Allen. [address], [place], [id number] , . tel:[phone] Referring Provider: Alejandro Jimenez, [address] [place], [address] . tel:[phone] [facility], [address] [place] [address], [id number], tel:[phone] [facility] No Information 0 4 Walter Allen. [address], [place], [id number] , . tel:[phone] Referring Provider: Alejandro Jimenez, [address] [place], [address] . tel:[phone] [facility], [address] [place] [address], [id number], tel:[phone] [facility] No Information 0 4 Dwaine Charlie. [address], [place], [id number] , . tel:[phone] Referring Provider: Alejandro Jimenez, [address] [place], [address] . tel:[phone] Office/outpa tient visit,est, mod [facility], [address] [place] [address], [id number], tel:[phone] [facility] knee (chief complaint) Sprain of anterior cruciate ligament of right knee, subsOth tear of medial meniscus, current injury, r knee, subsBody mass index (BMI) 37.0-37.9, adultEncounter for exam of blood pressure w/o abnormal findings 4 Walter Allen. [address] [place] [address], [id number] , . [phone] Referring Provider: Alejandro Jimenez, [address] [place], [address] . tel:[phone] Office/outpa tient visit,[facility], [facility], [address] [place] [address], [id number], tel:[phone] [facility] knee (chief complaint) Body mass index (BMI) 37.0-37.9, adultEncounter for exam of blood pressure w/o abnormal findingsRupture of anterior cruciate ligament of right knee, subsequent encounterOther tear of medial meniscus of right knee as current injury, subsequent encounterRupture of anterior cruciate ligament of right kneOther tear of medial meniscus of right knee as curOther tear of medial meniscus of right knee as curRupture of anterior cruciate ligament of right kne 4 Walter Allen. [address], [place], [id number] , [place]. tel:[phone] Referring Provider: Alejandro Jimenez, [address] [place], [address] . tel:[phone] [facility], [address] [place] [address], [id number], tel:[phone] [facility] Oth tear of medial meniscus, current injury, r knee, init 3 Walter Allen. [address], [place], [id number] , [place]. tel:[phone] Referring Provider: Himanshu Breaux, [address] [place], [address] . tel:[phone] Office/outpa tient visit,[facility], [facility], [address], [place], [id number], tel:[phone] [facility] knee (chief complaint) Body mass index (BMI) 37.0-37.9, adultEncounter for exam of blood pressure w/o abnormal findingsOther tear of medial meniscus of right knee as current injury, initial encounter 3 Dwaine Guerra. [address], [place], [id number] , [place]. tel:[phone] Referring Provider: Himanshu Breaux, [address], [place], [address] . tel:[phone] Family History Family Member Type Diagnosis Age At Onset Problem Family history of neg family hx Payers Payer name Insurance type Covered republican ID Maia porras(s) [facility] [id number] Social History Type Description Quantity Date Captured Comments Alcohol Use Details Unknown Caffeine Use Details Unknown Tobacco Use Status Current non-smoker Smoking Status Never smoker Non-Smoking Tobacco Use Details : No Details Available : No Details Available Sex Male Vital Signs Date / Time: Height Weight BMI Pulse Rate Blood Pressure Temperature Respiratory Rate Body Surface Area Head Circumference Head Circ. Percentile Wt./Mason. Percentile BMI percentile Pulse Ox Inhaled Ox 4:14 PM 71.00 in 123.377 kg (272.00 lbs) 37.9 4 kg/m eter (2) 135/91 mm[Hg] Chief Complaint And Reason For Visit From encounter dated '07/25/2024 15:20'. right knee (chief complaint) Reason For Referral Reason For Referral No Information Plan Of Treatment Date Type Action Status Future Order: Radiology Order Kn ee Xray 1 Or 2 Views ([id number]), Ordered on: Ordered Future Order: Radiology Order MR I Lower Ext Any Joint W/O Contrast ([id number]), Appointment on: Ordered History Of Present Illness Encounter Date Complaint History Of Prese nt Illness right knee RIGHT KNEE right knee RT KNEE RIGHT KNEE Right Knee RIGHT KNEE knee knee knee knee Functional Status Date Functional Assessmen t No Information Instructions Date Instruction Additional Infor mation Giving encouragement to exercise Related to Body mass index [BMI] 37.0-37.9, adult Giving encouragement to exercise Related to Elevated blood-pressure reading, w/o diagnosis of htn Giving encouragement to exercise Related to Elevated blood-pressure reading, w/o diagnosis of htn Giving encouragement to exercise Related to Body mass index [BMI] 37.0-37.9, adult Giving encouragement to exercise Related to Elevated blood-pressure reading, w/o diagnosis of htn Giving encouragement to exercise Related to Body mass index [BMI] 37.0-37.9, adult Giving encouragement to exercise Related to Elevated blood-pressure reading w/o diagnosis of HTN Giving encouragement to exercise Related to Body mass index [BMI] 37.0-37.9, adult Giving encouragement to exercise Related to Body mass index [BMI] 37.0-37.9, adult Giving encouragement to exercise Related to Elevated blood-pressure reading w/o diagnosis of hypertension Giving encouragement to exercise Related to Body mass index [BMI] 37.0-37.9, adult Giving encouragement to exercise Related to Body mass index [BMI] 37.0-37.9, adult Giving encouragement to exercise Related to Elevated blood-pressure reading, w/o diagnosis of htn Giving encouragement to exercise Related to Body mass index [BMI] 37.0-37.9, adult Giving encouragement to exercise Related to Body mass index [BMI] 37.0-37.9, adult Hypertension education Related t o Blood pressure check Giving encouragement to exercise Related to Blood pressure check Hypertension education Related t o Blood pressure check Giving encouragement to exercise Related to Body mass index [BMI] 37.0-37.9, adult Giving encouragement to exercise Related to Blood pressure check Giving encouragement to exercise Related to Body mass index [BMI] 37.0-37.9, adult Giving encouragement to exercise Related to BP check Assessments Type Assessment Date assessment Oth tear of medial meniscus, cur rent injury, r knee, subs assessment Body mass index [BMI] 37.0-37.9, adult assessment Elevated blood-pressure reading, w/o diagnosis of htn Patient Care Teams Name Effective Dates (start - stop) Status Members No Information
[2024-12-11 16:16] LABS: Alanine Aminotransferase 49 U/L (6-50); Albumin Level 4.4 g/dL (3.5-5.1); Alkaline Phosphatase 89 U/L (38-126); Anion Gap 12 mmol/L (4-12); Aspartate Amino Transferase 34 U/L (17-59); Bilirubin,Total 0.8 mg/dL (0.2-1.3); Blood Urea Nitrogen 13 mg/dL (9-20); Calcium 9.4 mg/dL (8.4-10.2); Carbon Dioxide 23 mmol/L (22-30); Chloride 104 mmol/L (98-107); Estimated CRCL calculation 168 ml/min; Estimated Glomerular Filt Rate > 60; Glucose 90 mg/dL (65-110); Lipase 65 U/L (23-300); Potassium 4.2 mmol/L (3.4-5.0); Sodium 139 mmol/L (137-145)
[2024-12-11 16:17] LABS: Prothrombin Time 13.2 Seconds (11.1-14.7)
[2024-12-11 16:18] LABS: Partial Thromboplastin Time 27.7 Seconds (22.3-36.8)
[2024-12-11 16:27] LABS: Troponin I < 0.012 ng/mL (0.000-0.034)
[2024-12-11] MEDS: ACETAMINOPHEN 500 MG TABLET 1000 MG PO (17:13)
[2024-12-11 19:34] LABS: Troponin I < 0.012 ng/mL (0.000-0.034)
== END 2024-12-11 20:40 | disposition home or self-care (01) ==
PROVIDERS: Emergency Provider Physician Assistant
DX: R51.9 Headache, unspecified (principal); R07.9 Chest pain, unspecified; R00.1 Bradycardia, unspecified; R94.31 Abnormal electrocardiogram [ECG] [EKG]
CPT/HCPCS: 36415; 70450; 71046; 80053; 83690; 84443; 84484; 85025; 85380; 85610; 85730; 93005; 99284; A9270